=== PATIENT | male | born 1990 | race Caucasian/White ===

== ENCOUNTER 2018-09-25 10:05 | Outpatient (CLI) | payer BC, SELFPAY ==
[2018-10-23 16:02] LABS: Chromosome Analysis(UVM) See Comments
== END 2018-09-25 10:25 ==
PROVIDERS: PCP Emergency Medicine; Visit Provider Obstetrics & Gynecology Reproductive Endocrinology
DX: Z31.441 Encounter for testing of male partner of patient with recurrent pregnancy loss (principal)
CPT/HCPCS: 36415; 88230; 88262

== ENCOUNTER 2018-10-07 01:55 | Outpatient (CLI) | payer BC, SELFPAY ==
--- NOTE | 2018-10-07 07:45 | DI.US_ITS ---
SYMPTOM/DIAGNOSIS: ABD PAIN, R10.9 ABDOMEN ULTRASOUND: The aorta and vena cava are intact. The liver measures 15.5 cm. at the mid clavicular line. The gallbladder is intact. There are no stones. The common duct caliber is 3 mm. The pancreas and spleen are intact. The spleen measures 10.5 cm. in length. The right kidney measures 10.6 cm. The left kidney measures 11.1 cm. There is no apparent ascites or evidence of abdominal mass. IMPRESSION: Normal abdominal ultrasound.
== END 2018-10-07 02:15 ==
PROVIDERS: PCP Emergency Medicine; Visit Provider Emergency Medicine
DX: R10.9 Unspecified abdominal pain (principal)
CPT/HCPCS: 76700

== ENCOUNTER 2018-10-09 10:18 | Outpatient (CLI) | payer BC, SELFPAY ==
[2018-10-09 16:38] LABS: HCT 41.1 % (40.0-50.0); HGB 14.2 g/dL (13.5-17.5); Mean Corp. HGB Concentration 34.5 g/dL (32.0-36.0); Mean Corpuscular Hemoglobin 31.4 pg (27.0-33.0); Mean Corpuscular Volume 90.9 fL (80-95); Mean Platelet Volume 9.7 fL (8.0-11.0); Platelet Count 251 x1000/uL (130-400); RBC 4.52 m/cumm (4.50-6.00); RBC Distribution Width 11.8 % (11.8-14.1); White Blood Cell Count 6.86 k/cumm (4.4-10.8)
[2018-10-09 18:17] LABS: ALT 31 U/L (12-78); AST 22 U/L (15-37); Albumin 3.5 g/dL (3.4-5.0); Alkaline Phosphatase 54 U/L (46-116); Amylase 58 U/L (25-115); Anion Gap 6.1 mmol/L (3-11); BUN 19 mg/dL (7-18); Bilirubin, Total 0.3 mg/dL (0.2-1.0); CO2 30.9 mmol/L (21.0-32.0); CREATININE 0.95 mg/dL (0.70-1.30); Chloride 103 mmol/L (98-107); Glucose 78 mg/dL (70-100); Lipase 103 U/L (73-393); Potassium 4.2 mmol/L (3.5-5.1); Sodium 140 mmol/L (136-145)
[2018-10-09 18:48] LABS: GGT 22 U/L (15-85)
== END 2018-10-09 10:38 ==
PROVIDERS: PCP Emergency Medicine; Visit Provider Emergency Medicine
DX: R10.9 Unspecified abdominal pain (principal)
CPT/HCPCS: 36415; 80053; 83690; 85027; 82150; 82977

== ENCOUNTER 2018-10-15 21:56 | Emergency (ER) | payer BC, SELFPAY ==
[2018-10-15] VITALS (8 sets, daily range): BP systolic 117–149; BP diastolic 63–74; PULSE 94–115; RESP 18–33; TEMP 36.6–36.8; O2SAT 99
--- NOTE | 2018-10-15 22:08 | DI.RAD_ITS ---
SYMPTOM/DIAGNOSIS: CP AP AND LATERAL CHEST: The lungs are free of infiltrate. There is no pleural effusion. The heart is enlarged in this patient who is status post cardiac surgery. 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 The hilar structures, mediastinum and tracheal air column are intact. SUMMARY: No evidence of acute cardiopulmonary disease.
--- NOTE | 2018-10-15 22:12 | ED.GENADUL_ITS ---
Discharge Plan Discharge Details Chief Complaint: GenMedical Reason For Visit: DARLENE Primary Care Provider: Talha Oliveros ED Provider: Celina Osorio Home Meds and New Rx's Prescriptions: No Action aspirin [Ecotrin Low Strength] 81 MG tablet,delayed release (DR/EC) 81 mg PO DAILY RF: 0 Medical Decision Making Patient is a 28year old male, accompanied by and brought in via EMS, with c/c of rattling in chest. Patient has history of Chiari malformation, VSD, pulmonary artery stenosis, complete transposition of great vessels, ADHD. Patient had open heart surgery as a child. reports that he is followed [employer] for this. At the proximally 1900, patient reports that he ate a pot brownie. Does not typically use marijuana. Reports that this is a gift he received from a friend. Unknown amount of marijuana in it. Since that time, he has been having chest pain, anxiety, nausea and vomiting. Denies any headache. Denies abdominal pain. Has flight of ideas. Pupils are dilated eyes are injected. Appears very anxious and is yelling on exam. Patient does have a systolic murmur this is likely associated congenital abnormalities. Indicating central area of the chest is area of discomfort. Lungs are clear. Shortness of breath. Patient is tachycardic at 114, tachypneic. Afebrile with oxygen 99%. No abnormalities noted in lower extremities. 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 EKG reviewed by Dr. Lloyd. Tachycardic, sinus rhythm with rate of 120. Notes diffuse T wave depressions but advised that this is not consistent with ischemia, is concerned this is primarily rate related vs. secondary to congenital abnormality. No old EKG here at this time, will attempt to find one from [facility] [place]. Patient given 0.5mg of Ativan. this appears to have calmed him down greatly. HR is now in the high 80s, RRR. Did fall asleep. Upon awakening, he was endorsing his heart rattling in his chest. He is able to clarify this further, feels that his heart is beating hard and that I can hear my valve. With HR down, will repeat EKG. Repeat EKG reviewed by Dr. Lloyd. Depressions are improved, NSR with no ischemic changes noted. CXR reviewed by radiologist: FINDINGS: Lungs: There is no evidence of focal pulmonary consolidation. The pulmonary vasculature is normal. Pleural space: There is no evidence of pneumothorax. There are no pleural effusions present. Heart/Mediastinum: The heart is mildly prominent. The cardiac silhouette is otherwise within normal limits. The mediastinum is normal. Bones/joints: The sternoclavicular joints are asymmetric. Median sternotomy and probable ascending thoracic aortic prosthesis in place. The spine, sternum, ribs, and pectoral girdles show no evidence of acute abnormality Soft tissues: There are no soft tissue masses or calcifications. IMPRESSION: No active cardiopulmonary disease . Labs significant for potassium of 3.1. Troponin normal at 0.03, no leukocytosis. Will replenish potassium. As he has had GI upset, plan to give 20meq here and send 20 home to be taken with food tomorrow morning. Given the sudden onset of symptoms, will obtain repeat troponin. At the end of my shift, care transitioned to Dr. Lloyd with repeat troponin pending. HPI General Mode of arrival: ambulatory . Date/Time Provider Initiated Documentation: 10/15/18 22:07 . Limitations to Documentation: no limitations . Information obtained by: patient and family () . History of Present Illness 28 year old M presents to the emergency department with the chief complaint of chest pain, described as severe, Quality is described as constant, and is localized to the chest. Patient reports no radiation. Patient started experiencing this hour(s) and it has been constant. No relieving factors improve symptom(s), No exacerbating factors reported . Patient notes chest pain, nausea/vomiting and shortness of breath; denies cough, diaphoresis, fever/chills, headaches, rash, syncope and weakness. Patient did receive the following treatments prior to arrival, none Related Data Home Medications Medication Instructions Recorded Confirmed aspirin [Ecotrin] 81 mg PO DAILY tab-cap 03/11/13 10/16/18 Allergies Allergy/AdvReac Type Severity Reaction Status Date / Time cephalexin monohydrate Allergy Unknown Skin Rash Verified 10/15/18 22:06 [From Keflex] codeine Allergy Unknown Verified 10/15/18 22:06 General Stated Complaint: GenMedical VI: 3 Review of Systems Constitutional Reports as per HPI, Denies chills, Denies fever(s), Denies headache(s), Denies lethargy and Denies poor appetite Eyes Denies change in vision ENT Denies headache(s) Cardiovascular Reports as per HPI, Reports chest pain, Denies diaphoresis, Reports rapid heart rate, Denies pedal edema, Denies edema, Denies irregular heart rhythm, Denies leg edema, Denies lightheadedness, Denies radiating jaw, neck or arm pain, Reports palpitations, Denies dyspnea and Denies dyspnea on exertion Respiratory Reports as per HPI, Denies cough, Denies pain with cough, Denies dyspnea, Denies dyspnea on exertion and Denies wheezing Gastrointestinal Reports as per HPI, Denies abdominal pain, Denies diarrhea, Reports nausea and Reports vomiting Genitourinary Denies system reviewed and no additional complaints, except as docu (denies change in urinary habits) Musculoskeletal Reports as per HPI and Denies back pain Integumentary/Breasts Reports as per HPI and Denies rash Neurologic Denies headache(s) Endocrine Reports palpitations Allergic/Immunologic Denies wheezing [facility] Surgical History Stent placement Family History Mother No problems noted. Father No problems noted. Sister No problems noted. Sister No problems noted. Brother No problems noted. Brother No problems noted. Grandfather Essential hypertension Grandfather Neoplasm Grandmother No problems noted. Grandmother Essential hypertension Social History Smoking/Tobacco Use Status: Never Exam Const General: healthy appearing, well developed, acute distress (patient is shaking, screaming, appears anxious. Flapping his arms over ches) moderate, anxious, not diaphoretic, not disheveled and not frail appearing Nutritional Appearance: average body habitus and well nourished Orientation: alert, awake and oriented x3 HENMT Head: normal to inspection Ears: hearing grossly normal bilaterally Mouth: moist mucous membranes Chest Chest: normal inspection of the chest, normal palpation of entire chest wall and no crepitus Resp Effort & Inspection: normal respiratory effort, able to speak in complete sentences and no respiratory distress Auscultation: clear to auscultation bilaterally, no rales, no rhonchi and no wheezes Cardio Rate: regular rate Rhythm: regular rhythm Heart Sounds: murmur systolic GI Inspection: normal to inspection, no edema and non-distended Palpation: soft, no hepatosplenomegaly, not firm, no guarding, not rigid and nontender Auscultation: normal bowel sounds Back/Spine/Pelvis Back: no CVA tenderness Thoracic/Lumbar Spine: thoracic and lumbar spine normal to inspection Skin General skin exam: no rashes or lesions noted Trauma: no lacerations or abrasions Neuro General: alert, awake and oriented x3 Cognition: normal cognition Speech: speech normal Gait: normal gait Extrem General: normal to inspection, normal capillary refill, no pedal edema, no calf tenderness and normal gait Psych Appearance: well kempt Speech and Movement: agitated Mood: anxious mood Affect: anxious affect Course Vital Signs Temperature 36.8 C 10/15/18 22:02 Pulse 114 H 10/15/18 22:02 Respiratory Rate 26 H 10/15/18 22:02 Blood Pressure 141/63 H 10/15/18 22:02 Pulse Oximetry 99 10/15/18 22:02 Temperature 36.8 C 10/15/18 22:02 Temperature Source Temporal Artery Scan 10/15/18 22:02 Pulse 114 H 10/15/18 22:02 Respiratory Rate 28 H 10/15/18 22:07 Respiratory Effort Non-Labored 10/15/18 22:07 Respiratory Depth Normal 10/15/18 22:07 Respiratory Pattern Normal 10/15/18 22:07 Blood Pressure 141/63 H 10/15/18 22:02 Blood Pressure Position Sitting 10/15/18 22:02 Pulse Oximetry 99 10/15/18 22:02 Oxygen Delivery Method Room Air 10/15/18 22:02 Oxygen Flow Rate 0 10/15/18 22:02 Pain Level 0 10/15/18 22:02
[2018-10-15] MEDS: LORazepam 2 MG/ML VIAL 0.5 MG IVP (22:21)
[2018-10-15] MEDS: Normal Saline 1,000 ML 1000 ML IV (22:21)
[2018-10-15 22:25] LABS: Abs Immature Grans 0.05 k/cumm (0.0-0.09); Absolute Basophil Count 0.06 k/cumm (0.0-0.2); Absolute Eosinophil Count 1.24 k/cumm (0.0-0.7); Absolute Lymphocyte Count 1.64 k/cumm (1.2-3.4); Absolute Monocyte Count 0.82 k/cumm (0.11-0.7); Absolute Neutrophil Count 6.87 k/cumm (1.2-6.7); Basophils % 0.6; Eosinophils % 11.6; HCT 41.1 % (40.0-50.0); HGB 14.4 g/dL (13.5-17.5); Immature Grans % 0.5; Lymphocytes % 15.4; Mean Corpuscular Hemoglobin 31.2 pg (27.0-33.0); Mean Platelet Volume 9.3 fL (8.0-11.0); Monocytes % 7.7; Neutrophils % 64.2; Platelet Count 284 x1000/uL (130-400); RBC 4.62 m/cumm (4.50-6.00); RBC Distribution Width 11.7 % (11.8-14.1); White Blood Cell Count 10.68 k/cumm (4.4-10.8)
[2018-10-15 22:51] LABS: Diff Comment Diff Reviewed; RBC Morphology Normal
[2018-10-15 23:01] LABS: Salicylate < 2.8 mg/dL (2.8-20.0)
[2018-10-15 23:04] LABS: ALT 32 U/L (12-78); AST 25 U/L (15-37); Albumin 3.4 g/dL (3.4-5.0); Alkaline Phosphatase 54 U/L (46-116); Anion Gap 9.7 mmol/L (3-11); BUN 19 mg/dL (7-18); Bilirubin, Total 0.1 mg/dL (0.2-1.0); CO2 28.3 mmol/L (21.0-32.0); CREATININE 0.99 mg/dL (0.70-1.30); Calcium 8.5 mg/dL (8.5-10.1); Chloride 100 mmol/L (98-107); Glucose 182 mg/dL (70-100); Magnesium 1.8 mg/dL (1.8-2.4); Potassium 3.1 mmol/L (3.5-5.1); Sodium 138 mmol/L (136-145); Total Protein 6.2 g/dL (6.4-8.2); Troponin I 0.03 ng/mL (0.00-0.06)
[2018-10-15 23:09] LABS: Acetaminophen < 2 ug/mL (10-30)
[2018-10-15 23:14] LABS: ETHANOL BLOOD < 3.0 mg/dL (<3)
[2018-10-15] MEDS: Potassium Chloride 20 MEQ TABCR PO (23:30)
--- NOTE | 2018-10-15 23:43 | DI.VRAD_ITS ---
EXAM: XR Chest, 2 Views EXAM DATE/TIME: 10/15/2018 10:44 PM CLINICAL HISTORY: 28 years old, male; Pain; Chest pain TECHNIQUE: XR of the chest, 2 views. COMPARISON: No relevant prior studies available. FINDINGS: Lungs: There is no evidence of focal pulmonary consolidation. The pulmonary vasculature is normal. Pleural space: There is no evidence of pneumothorax. There are no pleural effusions present. Heart/Mediastinum: The heart is mildly prominent. The cardiac silhouette is otherwise within normal limits. The mediastinum is normal. Bones/joints: The sternoclavicular joints are asymmetric. Median sternotomy and probable ascending thoracic aortic prosthesis in place. The spine, sternum, ribs, and pectoral girdles show no evidence of acute abnormality Soft tissues: There are no soft tissue masses or calcifications. IMPRESSION: No active cardiopulmonary disease . Dictated and Authenticated by: Rai Bullock MD. Ordering:ARCADIO Patrick MD
[2018-10-16 01:31] LABS: Troponin I 0.06 ng/mL (0.00-0.06)
[2018-10-16 01:56] LABS: Bilirubin Negative (Negative); Blood Negative (Negative); Clarity Sl Cloudy; Glucose Negative (Negative); Ketones Negative (Negative); Leukocyte Esterase Negative (Negative); Nitrite Negative (Negative); Urobilinogen 0.2 EU/dL (Up TO 0.2)
[2018-10-16 02:04] LABS: Bacteria Rare HPF (Negative); C & S Indicated? No; Casts Negative LPF (Negative); Crystals Mod Calcium Oxalate HPF (Negative); Epithelial Cells Rare HPF (Negative); Mucus Moderate (Negative); RBC 0-2 (0-2); WBC 0-2 HPF (0-5)
[2018-10-16 02:08] LABS: *AMPHETAMINES SCREEN URINE Negative (Negative); *BARBITURATES SCREEN URINE Negative (Negative); *BENZODIAZEPINES SCREEN URINE Negative (Negative); Cannabinoids THC POSITIVE (Negative); Cocaine Screen,Urine Negative (Negative); METHADONE URINE SCREEN Negative (Negative); OPIATES URINE SCREEN Negative (Negative); Tricyclic Antidepressants Negative (Negative)
[2018-10-16 04:42] LABS: Troponin I 0.04 ng/mL (0.00-0.06)
== END 2018-10-16 05:03 | disposition home or self-care (01) ==
PROVIDERS: Physician Assistant; Emergency Provider Emergency Medicine; PCP Emergency Medicine
DX: R07.9 Chest pain, unspecified (principal)
CPT/HCPCS: 36415; 80053; 80307; 93005; 96361; 96374; 99284; 71046; 80320; 80329; 81003; 81015; 83735; 84484; 85025; 93010; J2060

== ENCOUNTER 2019-07-17 01:31 | Outpatient (CLI) | payer BC, SELFPAY ==
--- NOTE | 2019-07-17 09:21 | DI.US_ITS ---
EXAM: US SCROTUM CLINICAL HISTORY: Questioning left inguinal hernia, R10.32 LLQ. TECHNIQUE: Ultrasound performed using standard protocol. COMPARISON: US ABDOMEN from 10/07/2018 FINDINGS: Scrotal ultrasound was performed according to the usual protocol. The testes are normal in echotextu re. No intra testicular mass seen. Incidental finding of bilateral microlithiasis noted. The epididymi appear normal bilaterally. Unremarkable Doppler evaluation of the testes and epididymi. IMPRESSION: Unremarkable scrotal ultrasound. No evidence of hernia in scrotum or left inguinal canal.
== END 2019-07-17 01:51 ==
PROVIDERS: PCP Emergency Medicine; Visit Provider Nurse Practitioner Family
DX: R10.32 Left lower quadrant pain (principal); N50.89 Other specified disorders of the male genital organs
CPT/HCPCS: 76870

== ENCOUNTER 2019-12-21 02:03 | Outpatient (CLI) | payer BC, SELFPAY ==
[2019-12-21 08:55] LABS: HGB 14.9 g/dL (13.5-17.5); Mean Corp. HGB Concentration 34.7 g/dL (32.0-36.0); Mean Corpuscular Hemoglobin 31.4 pg (27.0-33.0); Mean Corpuscular Volume 90.5 fL (80-95); Mean Platelet Volume 9.3 fL (8.0-11.0); Platelet Count 235 x1000/uL (130-400); RBC 4.75 m/cumm (4.50-6.00); RBC Distribution Width 12.1 % (11.8-14.1); White Blood Cell Count 5.99 k/cumm (4.4-10.8)
[2019-12-21 09:58] LABS: ALT 27 U/L (16-63); AST 17 U/L (15-37); Albumin 3.9 g/dL (3.4-5.0); Alkaline Phosphatase 51 U/L (46-116); Anion Gap 6.4 mmol/L (3-11); BUN 16 mg/dL (7-18); Bilirubin, Total 0.3 mg/dL (0.2-1.0); CO2 28.6 mmol/L (21.0-32.0); CREATININE 0.94 mg/dL (0.70-1.30); Calcium 8.8 mg/dL (8.5-10.1); Chloride 106 mmol/L (98-107); Glucose 87 mg/dL (74-106); Potassium 4.8 mmol/L (3.5-5.1); Sodium 141 mmol/L (136-145); TSH (W/Ref FT4) 3.47 uIU/mL (0.36-3.74); Total Protein 6.5 g/dL (6.4-8.2)
== END 2019-12-21 02:23 ==
PROVIDERS: PCP Emergency Medicine; Visit Provider Nurse Practitioner Gerontology
DX: R53.83 Other fatigue (principal); N52.9 Male erectile dysfunction, unspecified
CPT/HCPCS: 36415; 80053; 85027; 84443

== ENCOUNTER 2020-04-13 19:15 | Outpatient (REF) | payer BC, SELFPAY ==
[2020-04-14 23:58] LABS: Campylobacter PCR Negative (Negative); Salmonella PCR Negative (Negative); Shiga Toxin PCR Negative (Negative); Shigella/Enteroinvasive Ecoli Negative (Negative)
== END 2020-04-13 19:35 ==
LOC: LBN 19:15
PROVIDERS: PCP Emergency Medicine; Visit Provider Emergency Medicine
DX: R19.7 Diarrhea, unspecified (principal)
CPT/HCPCS: 87329; 87505; 87324

== ENCOUNTER 2020-04-14 02:35 | Outpatient (CLI) | payer BC, SELFPAY ==
[2020-04-18 12:45] LABS: IgA 168 mg/dL (85-499); Tissue Transglutaminase IgA 3.8 U/mL (<4.0)
== END 2020-04-14 02:55 ==
PROVIDERS: PCP Emergency Medicine; Visit Provider Emergency Medicine
DX: R19.7 Diarrhea, unspecified (principal)
CPT/HCPCS: 36415; 82784; 83516

== ENCOUNTER 2020-11-14 08:44 | Outpatient (CLI) | payer BC, SELFPAY ==
[2020-11-15 14:38] LABS: COVID-19 RT-PCR UVMMC Result Negative (Negative)
== END 2020-11-14 09:04 ==
PROVIDERS: PCP Emergency Medicine; Visit Provider Emergency Medicine
DX: Z20.822 Contact with and (suspected) exposure to COVID-19 (principal)
CPT/HCPCS: U0003

== ENCOUNTER 2021-09-13 20:02 | Emergency (ER) | payer BC, SELFPAY ==
[2021-09-13 20:05] VITALS: BP 133/55; PULSE 69; RESP 14; TEMP 36.2; O2SAT 100
--- NOTE | 2021-09-13 20:15 | DI.CT_ITS ---
Exam(s) CT HEAD WO EXAM: CT HEAD WO CLINICAL HISTORY: Headache, vision change. TECHNIQUE: Imaging Protocol: Axial computed tomography images with coronal and sagittal reformatted images were created and reviewed COMPARISON: No exams were available for comparison FINDINGS: Ventricles and Extra axial spaces: Normal in size and morphology for the patient's age. Hemorrhage: None. Cerebral parenchyma: Normal. Midline shift: None. Brainstem/Cerebellum: Normal. Calvarium: Normal. Visualized Paranasal sinuses/Mastoids: Clear. Soft Tissues: Unremarkable. IMPRESSION: No acute intracranial process. RADIATION DOSE DELIVERED: Total DLP DATA REPOSITORY: All CT scans at this facility are submitted to the National Radiology Data Registry (NRDR) Dose Index Registry (DIR) with the [employer] (ACR). RADIATION OPTIMIZATION: All CT scans at this facility use at least one of these dose optimization te chniques: automated exposure control; mA and/or kV adjustment per patient size (includes targeted exa ms where dose is matched to clinical indication); or iterative reconstruction.
--- NOTE | 2021-09-13 20:27 | W.ED.GENAD ---
Discharge Plan Disposition Patient Disposition: HOME Condition: Improving Discharge Details Clinical Impression: Cephalgia, Dehydration Primary Care Provider: Talha Oliveros ED Provider: Matteo Mendoza Home Meds and New Rx's Prescriptions: Continued aspirin [Ecotrin Low Strength] 81 MG tablet,delayed release (DR/EC) 81 mg PO DAILY RF: 0 Discharge Instructions Instructions: Dehydration (ED), General Headache (ED) Additional Instructions: Home to rest tonight. Increase daily free water intake as we discussed. Return to the emergency department for any acute concerns. Medical Decision Making 31-year-old male presents from home with transient headache and visual changes that are improving upon arrival. He states that tunnellike closing in of his vision with associated left frontal headache that began at home. He does note some recent sleep changes due to hunting season. No fall or injury. Was not sneezing or coughing today. He does have a history of a Chiari I malformation as well as history of transposition of the great vessels and multiple cardiac repairs as a child. Patient visual acuity is noted to be 20/25 in the left eye, 20/200 on the right; he states this is normal and freestanding for vision of the right eye. Visual rios to confrontation are intact. No other acute neurologic findings on my exam. Referred for CT imaging, given fluid bolus, acetaminophen and screening labs obtained. Labs note elevated BUN over baseline, consistent with dehydration. CT: No acute intracranial findings. Following fluids and medication, the patient is improved without any further complaints. He is stable and appropriate for discharge to home. HPI General Mode of arrival: ambulatory. Date/Time Provider Initiated Documentation: 09/13/21 20:04. Limitations to Documentation: no limitations. Information obtained by: patient and family. History of Present Illness 31 year old M presents to the emergency department with the chief complaint of Headache and vision change, now improving, described as moderate, Quality is described as dull, and is localized to the head. Patient reports no radiation. Patient started experiencing this hour(s) and it has been other (Improving). No relieving factors improve symptom(s), No exacerbating factors reported . Patient notes headaches; denies loss of appetite and nausea/vomiting. Patient did receive the following treatments prior to arrival, none Related Data Home Medications Medication Instructions Recorded Confirmed aspirin [Ecotrin Low Strength] 81 mg PO DAILY tab-cap 03/11/13 09/13/21 Allergies Allergy/AdvReac Type Severity Reaction Status Date / Time cephalexin monohydrate Allergy Unknown Skin Rash Verified 09/13/21 20:10 [From Keflex] codeine Allergy Unknown Verified 09/13/21 20:10 General Stated Complaint: EyeProblem VI: 3 Review of Systems Narrative: No fall or injury. Mild left-sided headache. Vision is improving. Denies cough or sneeze. No recent illness. Some changes to sleep. 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 Father No problems noted. Sister No problems noted. Sister No problems noted. Brother No problems noted. Brother No problems noted. Maternal Grandfather , 81 Essential hypertension Heart disease Grandfather , 79 Cancer Maternal Grandmother No problems noted. Paternal Grandmother , 83 Essential hypertension Social History Smoking/Tobacco Use Status: Never Smoking risk assessment performed?: Yes Alcohol Intake: former Drug use: Rarely Substance use type: marijuana Caregiver/Support person: No Household members: spouse Housing: house Pets and animals: Yes Pets and animals: cat(s) and dog(s) Sexually active: Yes Do you think of yourself as: straight/heterosexual Current gender identity: male What is your relationship status?: How often do you talk on the phone with friends or family?: twice per week How often do you get together with friends or relatives?: once per week How often do you attend cheondoism or zoroastrianism services?: decline to answer Do you belong to any clubs or organized social groups?: no Panel score (0-1 are the most socially isolated patients): 2 What type of physical activity do you participate in: decline to answer Frequency: decline to answer Nighat/Presybeterian: None Special nighat needs: No Do you feel safe at home: Yes Do you feel safe in your relationship?: Yes Exam Narrative Exam Narrative: GEN: awake, alert, oriented 3. Pleasant, well groomed, interactive. HEAD: Normocephalic, atraumatic ENT: Mucous membranes moist, oropharynx unremarkable, External ear exam unremarkable EYES: PERRL, EOMI. visual acuity 20/25 left, 20/200 right. NECK: Full ROM, no CAROLE, no menigismus CHEST/RESP: Nontender, clear to auscultation bilateral, no wheeze/rhonchi/rales CARDIOVASCULAR: RRR, holosystolic 3-4/6 murmur. 2+ Rad pulse bilateral ABDOMEN: Soft, nontender, no mass. +Bowel sounds EXT: Full ROM, no edema, no rash Neuro: Grossly normal neurologic exam, conversant, interactive. Psych: Speech fluent, thoughts congruent, affect normal Course Vital Signs Vital signs: Vital Signs Temperature 36.2 C L 09/13/21 20:05 Pulse 69 09/13/21 20:05 Respiratory Rate 14 09/13/21 20:05 Blood Pressure 133/55 L 09/13/21 20:05 Pulse Oximetry 100 09/13/21 20:05 Temperature 36.2 C L 09/13/21 20:05 Temperature Source Skin 09/13/21 20:05 Pulse 69 09/13/21 20:05 Respiratory Rate 14 09/13/21 20:05 Respiratory Effort Non-Labored 09/13/21 20:10 Blood Pressure 133/55 L 09/13/21 20:05 Blood Pressure Position Supine 09/13/21 20:05 Pulse Oximetry 100 09/13/21 20:05 Oxygen Delivery Method Room Air 09/13/21 20:05 Oxygen Flow Rate 0 09/13/21 20:05 Pain Level 3 09/13/21 20:05 PAWSS Have you Been Recently Intoxicated or Drunk Within the Last 30 days?: No Have you Ever Experienced Previous Episodes of Alcohol Withdrawal?: No Have you ever Experienced Withdrawal Seizures?: No Have you ever Experienced Delirium Tremens(DT)s?: No Have you ever undergone Alcohol Rehabilitation Treatment (i.e, inpt ot outpatient treatment programs)?: No Have you ever Experienced Blackouts?: No Have you ever Combined Alcohol with other Downers within the last 90 days?: No Have you ever Combined Alcohol with any other Substance of Abuse during the last 90 days?: No Positive Blood Alcohol level on Presentation? [PCS.BAL]: No Evidence of Increased Autonomic Activity (i.e. HR>120, tremor, sweating, agitation, nausea)?: No Result: 0
[2021-09-13 20:50] LABS: BUN 22 mg/dL (7-18); CREATININE 0.9 mg/dL (0.70-1.30); Calcium 8.9 mg/dL (8.5-10.1); Chloride 104 mmol/L (98-107); Glucose 95 mg/dL (74-106); Potassium 3.7 mmol/L (3.5-5.1); Sodium 139 mmol/L (136-145)
[2021-09-13] MEDS: ACETAMINOPHEN 1,000 MG/100 ML BTL 400 MG IVPB (20:50)
[2021-09-13] MEDS: Normal Saline 1,000 ML 1000 ML IV (20:56)
--- NOTE | 2021-09-13 20:57 | NUR.NOTE ---
Pt recieving IV tylenol & NS bolus as ordered, reports no change in complaints, headache is 2/10 and vision is normal/baseline at this time, continue to monitor.Nursing Note:
--- NOTE | 2021-09-13 21:18 | NUR.NOTE ---
Pt to CT scan w/transport, IV tylenol completed, NAD noted.Nursing Note:
--- NOTE | 2021-09-13 21:27 | NUR.NOTE ---
Pt retuirn from CT scan, reports DE LEÓN is gone, denies new symptons, IV NS bolus continue to infuse, VSS, NAD, cont. to monitor.Nursing Note:
[2021-09-13 21:30] VITALS: BP 112/63; PULSE 64; RESP 18; O2SAT 100
--- NOTE | 2021-09-13 21:50 | DI.VRAD_ITS ---
PROCEDURE INFORMATION: Exam: CT Head Without Contrast Exam date and time: 09/13/2021 8:27 PM Age: 31 years old Clinical indication: Other: DE LEÓN, vision changes TECHNIQUE: Imaging protocol: Computed tomography of the head without contrast. COMPARISON: No relevant prior studies available. FINDINGS: Brain: Normal. No hemorrhage. Unremarkable white matter. No mass effect. Cerebral ventricles: No ventriculomegaly. Paranasal sinuses: Visualized sinuses are unremarkable. No fluid levels. Mastoid air cells: Visualized mastoid air cells are well aerated. Bones/joints: Unremarkable. No acute fracture. Soft tissues: Unremarkable. IMPRESSION: No acute intracranial abnormality. Dictated and Authenticated by: Kam Chandler MD. Ordering:JORGE ALBERTO Felipe MD
[2021-09-13 22:07] VITALS: BP 110/68; PULSE 64; RESP 18; TEMP 37.1; O2SAT 100
== END 2021-09-13 22:07 | disposition home or self-care (01) ==
PROVIDERS: Emergency Provider Emergency Medicine; PCP Emergency Medicine
DX: R51.9 Headache, unspecified (principal); E86.0 Dehydration; H53.8 Other visual disturbances
CPT/HCPCS: 36415; 80048; 96361; 96374; 99284; 70450; J0131

== ENCOUNTER 2024-04-16 01:24 | Outpatient (CLI) | payer BC, SELFPAY ==
[2024-04-16 09:31] LABS: Calculated LDL 102 mg/dL (<100); Cholesterol 185 mg/dL (<200); Glucose 74 mg/dL (74-106); HDL Cholesterol 75 mg/dL (40-60); Triglyceride 40 mg/dL (<150)
== END 2024-04-16 01:25 | disposition home or self-care (01) ==
LOC: LBO 01:25
PROVIDERS: PCP Family Medicine; Visit Provider Family Medicine
DX: E78.5 Hyperlipidemia, unspecified (principal); R73.9 Hyperglycemia, unspecified
CPT/HCPCS: 36415; 80061; 82947

== ENCOUNTER 2024-11-22 12:00 | Outpatient (REF) | payer OTHER, BC, SELFPAY ==
[2024-11-23 23:14] LABS: Campylobacter PCR Negative (Negative); Salmonella PCR Negative (Negative); Shiga Toxin PCR Negative (Negative); Shigella/Enteroinvasive Ecoli Negative (Negative)
== END 2024-11-22 12:01 | disposition home or self-care (01) ==
LOC: LBN 12:00
PROVIDERS: PCP Family Medicine; Visit Provider Nurse Practitioner Family
DX: R19.7 Diarrhea, unspecified (principal)
CPT/HCPCS: 87505; 87177